=== PATIENT | female | born 1965 ===

== ENCOUNTER 2020-01-29 21:11 | Emergency (ER) | payer BC ==
[~2020-01-29] VITALS: Ht 160 cm; Wt 71.7 kg
[~2020-01-29 21:11] MED LIST: IBUP800 PO; OXYACE5T PO
[2020-01-29] MEDS ORDERED: Prednisone50 MG PO (21:42)
[2020-01-29] MEDS ORDERED: CEPH500 PO (21:42)
[2020-01-29] MEDS ORDERED: KETO10 PO (22:07)
== END 2020-01-29 23:10 | disposition home or self-care (01) ==
LOC: ER 21:11
DX: T63.441A Toxic effect of venom of bees, accidental (unintentional), initial encounter (principal); L03.113 Cellulitis of right upper limb; Z88.5 Allergy status to narcotic agent
CPT/HCPCS: 96365; 96375; 99282-25; J0696; J1200; J1885; J7512

== ENCOUNTER 2020-05-02 08:20 | Day surgery (SDC) | payer BC ==
[~2020-05-02] VITALS: Ht 160 cm; Wt 73.7 kg
[~2020-05-02 08:20] MED LIST changes: +CEPH500 PO; +Estradiol1 MG PO; +KETO10 PO; +Prednisone50 MG PO
--- NOTE | 2020-05-02 10:38 | NUR ---
05/02/20 Vasyl Cote 1 MG EPI ADDED TO EACH OF THE FIRST 3 BAGS OF LR FOR IRRIGATION.
== END 2020-05-02 12:34 | disposition home or self-care (01) ==
LOC: ORSCSDS 08:20
PROVIDERS: Orthopaedic Surgery
PROC: 0SBG4ZZ Excision of Left Ankle Joint, Percutaneous Endoscopic Approach (ICD-10-PCS; principal; 2020-05-02 09:30)
PROC: 0LU Tendons, Supplement (ICD-10-PCS; principal; 2020-05-02 09:30)
DX: M89.9 Disorder of bone, unspecified (principal); M94.9 Disorder of cartilage, unspecified; M65.9 Synovitis and tenosynovitis, unspecified
CPT/HCPCS: A9270-GY; C1762; J0171; J0690; J2250; J2405; J2704; J2795; J3010; J7120